=== PATIENT | female | born 1965 | race Caucasian/White ===

== ENCOUNTER → 2018-06-07 | Outpatient (CLI) | payer MEDICARE ==
[~2018-06-07] MED LIST: /ADVA50050 IN; FLEXERIL PO; IBUP600T OR; LYRI150C PO; TYLENOL #3 OR; VICO5TAB PO
--- NOTE | 2018-06-07 14:46 | REP ---
CHEST X-RAY: TWO VIEWS. HISTORY: Chest pain with breathing. COMPARISON CHEST X-RAY: August 11, 2009 FINDINGS: The lungs are quite hyperinflated consistent with COPD. This has increased since the prior study. On today's exam, there is increased density overlying the heart on the lateral film which is a new finding suggesting atelectasis in the right middle lobe. The right heart border is partially obscured. There is no other infiltrate. Heart size is normal. IMPRESSION: Increased density overlying the heart on the lateral film consistent with right middle lobe atelectasis. Overall hyperinflation. Consider chest CT. Electronically Signed by Cecilio Sims MD 06/07/2018 02:53 P
== END ==
LOC: M SMT 11:45
PROVIDERS: ATTEND Internal Medicine Pulmonary Disease
DX: R91.8 Other nonspecific abnormal finding of lung field (principal)

== ENCOUNTER → 2019-07-22 | Outpatient (CLI) | payer MEDICARE ==
[~2019-07-22] MED LIST changes: -/ADVA50050 IN; +ADVA1AER2 IN
--- NOTE | 2019-07-22 11:55 | REP ---
REASON FOR EXAM: Tobacco abuse. The only prior for comparison is a standard contrast enhanced CT of the chest of 03/03/2007. As per the protocol, only lung window images were sent to the read station for interpretation. There is lung field hyperexpansion. There is ground-glass opacity seen throughout the right middle lobe. Small biapical pleural blunt are noted essentially unchanged possibly slightly increased from the prior exam. There is cylindrical bronchiectasis increased from the prior exam. There are no new nodules. Limited evaluation of the pulmonary sixto and mediastinum show no gross abnormalities. Limited evaluation of the imaged upper abdomen and imaged osseus structures show them to be essentially unchanged from the prior exam. IMPRESSION: 1. Emphysematous changes as described above. 2. Slight diffuse ground-glass opacity throughout the right middle lobe. This exam cannot rule out a partially obstructing endobronchial lesion. The findings represents a change from the prior exam and needs to be correlated clinically with appropriate followup. Diagnostic contrast enhanced chest CT is recommended. Lung RADS category 1S. ? Electronically Signed by Donald Price DO 07/22/2019 01:25 P
== END ==
LOC: M RAD 10:33
PROVIDERS: ATTEND Internal Medicine Pulmonary Disease
DX: Z12.2 Encounter for screening for malignant neoplasm of respiratory organs (principal); F17.210 Nicotine dependence, cigarettes, uncomplicated; J43.9 Emphysema, unspecified; R91.8 Other nonspecific abnormal finding of lung field

== ENCOUNTER → 2019-11-08 | Outpatient (CLI) | payer MEDICARE ==
[~2019-11-08] MED LIST changes: +ADVA230A INH; +INCR1INH INH; +VENTAER INH
--- NOTE | 2020-01-09 15:04 | REP ---
INDICATION: R91.8 OTH NON SPEC ABN FINDING LUNG FIELD. Repeat dictation. COMPARISON: Comparison CT study also reviewed from March 03, 2007. TECHNIQUE: Helical scanning is acquired and 3 mm axial images are generated. Coronal MIP and coronal and sagittal MPR images are generated. FINDINGS: Preliminary digital talent scout radiograph demonstrates hyperinflation. Today's CT study demonstrates lobar atelectasis in the right middle lobe. This is observed on comparison chest x-ray from June 07, 2018 but is new from the comparison CT studies. There are air bronchograms in the collapsed right middle lobe centrally. The central portion of the right middle lobe bronchus is obscured or opacified. There is no evidence of hilar or mediastinal mass or adenopathy. No pleural or pericardial effusion is seen. Vascular calcification is noted. Emphysematous changes are visible bilaterally in the upper lobes. There are some emphysematous changes in the lower lobes as well. No mass or nodule is appreciated. Bone window settings show degenerative disc disease changes. There is an osteoporotic wedge compression deformity at the T12 vertebral body level with approximately 40% loss of anterior vertebral body height. Degenerative disc disease is noted at T12-L1. There is partial collapse of the superior and inferior endplates. Schmorl's nodes are noted elsewhere in the thoracolumbar spine segments. IMPRESSION: 1. Lobar atelectasis right middle lobe. 2. Healing osteoporotic wedge compression deformity at T12. 3. Hyperinflation associated with moderate COPD and emphysematous change. <Electronically signed by Boby Sims > 01/09/20 [id number]
== END ==
LOC: M RAD 14:09
PROVIDERS: ATTEND Internal Medicine Pulmonary Disease
DX: R91.8 Other nonspecific abnormal finding of lung field (principal)

== ENCOUNTER → 2019-11-24 | Outpatient (REF) | payer MEDICARE ==
[2019-11-24 18:45] LABS: BASO # 0.1 10^3/uL (0.0-0.2); EOS # 0.1 10^3/uL (0.0-0.5); EOS % 1.2 % (0.0-3.0); HEMATOCRIT 33.3 % (36.0-47.0); HEMOGLOBIN 11.7 g/dl (12.0-15.5); LYMPH # 1.8 10^3/uL (1.5-5.0); LYMPH % 33.9 % (24.0-44.0); MEAN CORPUSCULAR HEMOGLOBIN 35.3 pg (27.0-33.0); MEAN CORPUSCULAR HGB CONC 35.1 g/dl (32.0-36.5); MEAN CORPUSCULAR VOLUME 100.6 fl (80.0-96.0); MONO # 0.7 10^3/uL (0.0-0.8); MONO % 13.9 % (0.0-5.0); NEUTROPHILS # 2.6 10^3/uL (1.5-8.5); NEUTROPHILS % 49.6 % (36.0-66.0); PLATELET COUNT, AUTOMATED 328 10^3/uL (150-450); RED BLOOD COUNT 3.31 10^6/uL (4.00-5.40); WHITE BLOOD COUNT 5.2 10^3/uL (4.0-10.0)
[2019-11-24 18:57] LABS: INR 0.96
[2019-11-24 18:58] LABS: PARTIAL THROMBOPLASTIN TIME 30.7 SECONDS (25.0-38.4)
[2019-11-24 19:14] LABS: ALT/SGPT 21 U/L (12-78); BILIRUBIN,TOTAL 0.2 MG/DL (0.2-1.0); BLOOD UREA NITROGEN 5 MG/DL (7-18); CARBON DIOXIDE LEVEL 29 MEQ/L (21-32); CHLORIDE LEVEL 104 MEQ/L (98-107); CREATININE FOR GFR 0.63 MG/DL (0.55-1.30); GLOMERULAR FILTRATION RATE > 60.0 (>51); GLUCOSE, FASTING 81 MG/DL (70-100); POTASSIUM SERUM 3.9 MEQ/L (3.5-5.1); SODIUM LEVEL 138 MEQ/L (136-145); TOTAL PROTEIN 7.3 GM/DL (6.4-8.2)
== END ==
LOC: M LAB REF 16:47
PROVIDERS: ATTEND Internal Medicine Pulmonary Disease
DX: R91.8 Other nonspecific abnormal finding of lung field (principal)

== ENCOUNTER → 2019-11-30 | Outpatient (CLI) | payer MEDICARE | LOC: M LABSMTC 12:24 | PROVIDERS: ATTEND Anesthesiology | DX: Z01.812 Encounter for preprocedural laboratory examination (principal); Z20.828 Contact with and (suspected) exposure to other viral communicable diseases | CPT/HCPCS: C9803; U0002 ==

== ENCOUNTER 2019-12-05 07:05 | Day surgery (SDC) | payer MEDICARE ==
[~2019-12-05] VITALS: Ht 172.7 cm; Wt 52.2 kg
[~2019-12-05 07:05] MED LIST changes: +ALBUTEROL SULFATE 2.5 MG/0.5 ML INH NEB SOLN NEB ONE; +LIDOCAINE 4% INJ 5ML AMP NEB ONE; +LR 1,000 ML IV ONE
[2019-12-05] MEDS ORDERED: LIDOCAINE 1% SDV 30ML VIAL As Ordered ONE (08:05)
[2019-12-05] MEDS ORDERED: EPINEPHrine 1MG/10ML SYRINGE 1.5IN As Ordered ONE (08:05)
[2019-12-05] MEDS ORDERED: LIDOCAINE 4% INJ 5ML AMP As Ordered ONE (08:06)
[2019-12-05] MEDS ORDERED: THROMBIN SOLN 20,000 UNITS KIT As Ordered ONE (08:06)
[2019-12-05] MEDS ORDERED: ALBUTEROL SULFATE 2.5 MG/0.5 ML INH NEB SOLN As Ordered ONE (08:07)
[2019-12-05] MEDS ORDERED: LIDOCAINE 2% 100MG/5ML SDV (FOR ANES.) As Ordered ONE (08:10)
[2019-12-05] MEDS ORDERED: THROMBIN SOLN 5,000 UNITS VIAL As Ordered ONE (08:10)
[2019-12-05] MEDS ORDERED: CETACAINE SPRAY 5GM As Ordered ONE (08:10)
[2019-12-05] MEDS ORDERED: ROCURONIUM BROMIDE 50 MG/5 ML VIAL As Ordered ONE (08:10)
[2019-12-05] MEDS ORDERED: propofoL 200 MG/20 ML VIAL As Ordered ONE (08:10)
[2019-12-05] MEDS ORDERED: dexameTHASONE 4 MG/ML 1ML VIAL (J1100 PER 1MG) As Ordered ONE (08:11)
[2019-12-05] MEDS ORDERED: ONDANSETRON 4MG/2ML VIAL As Ordered ONE (08:11)
[2019-12-05] MEDS ORDERED: fentaNYL 100 MCG/2 ML INJECTION (J3010) As Ordered ONE (08:11)
[2019-12-05] MEDS ORDERED: MIDAZOLAM INJ 2MG/2ML VIAL (J2250 PER 1MG) As Ordered ONE (08:11)
[2019-12-05] MEDS ORDERED: PHENYLephrine HCL 500 MCG/5 ML (100MCG/ML) SYRINGE (J2370) As Ordered ONE (08:57)
[2019-12-05] MEDS ORDERED: SUGAMMADEX SODIUM 500 MG/5 ML VIAL (BRIDION) As Ordered ONE (09:24)
[2019-12-05] MEDS ORDERED: ACETAMINOPHEN 1000MG 100ML IV BTL (OFIRMEV) (J0131 PER 10MG) As Ordered ONE (09:26)
--- NOTE | 2019-12-05 09:47 | ROOR ---
Patient Name: Maddie Stephen Procedure Date: 12/05/2019 8:13 AM Date of : 1965 Admit Type: Outpatient Age: 54 Room: Main OR Note Status: Finalized Attending MD: Elma Timmons MD Procedure: Bronchoscopy Indications: Atelectasis of the right middle lobe Providers: Elma Timmons MD (Doctor), Duane Klein DO, [facility] (1st Assisting [facility]) Referring MD: 1. No Referring Physician 1. No Referring Physician, Admin. (Referring MD) Requesting Physician: Medicines: General Anesthesia, Lidocaine 4% via nebulizer with Albuterol 2.5 mg, Cetacaine topical, Lidocaine 1% applied to cords 1 mL Complications: No immediate complications. Estimated blood loss: Minimal Procedure: Pre-Anesthesia Assessment: - Prior to the procedure, a History and Physical was performed, and patient medications and allergies were reviewed. The patient's tolerance of previous anesthesia was also reviewed. The risks and benefits of the procedure and the sedation options and risks were discussed with the patient. All questions were answered, and informed consent was obtained. Prior Anticoagulants: The patient has taken no previous anticoagulant or antiplatelet agents. ASA Grade Assessment: II - A patient with mild systemic disease. After reviewing the risks and benefits, the patient was deemed in satisfactory condition to undergo the procedure. - Patient identification and proposed procedure were verified prior to the procedure by the physician, the nurse, the anesthesiologist and the optical engineering technician. The procedure was verified in the procedure room. The Bronchoscope was introduced through the mouth, via the endotracheal tube (the patient was intubated for the procedure) and advanced to the tracheobronchial tree of both lungs. The procedure was accomplished without difficulty. The patient tolerated the procedure well. Findings: The endotracheal tube is in good position. The visualized portion of the trachea is of normal caliber. The maile is sharp. The tracheobronchial tree was examined to at least the first subsegmental level. Bronchial anatomy are normal; bronchial mucosa with pitting and webbing. There are no endobronchial lesions. There was thick mucoid secretions noted in right middle lobe and some in right lower lobe as well as few secretions in left upper lobe. Robotic Electromagnetic navigation bronchoscopy was performed. The CT scan was used for planning purposes. A virtual bronchoscopic image was generated using the planning software. The target in the medial segment of the right middle lobe was marked. An area of infiltration was found and a pathway was created. After a complete airway exam, the [employer] robotic electromagnetic navigation phase was then begun to locate the target lesion(s). Positioning off-center (in relation to the lesion) was confirmed using the Olympus radial probe US catheter. Appeared to be mucous secretions in distal segment off of right middle lobe medial segmental bronchus. Fluoroscopy guided endobronchial brushings of a lesion were obtained in the medial segment of the right middle lobe with a cytology brush and sent for routine cytology. Bronchoalveolar lavage was performed in the RML medial segment (B5) of the lung and sent for cell count, bacterial culture, and fungal & AFB analysis and cytology. The return was blood-tinged and cloudy. Mucous plugs were present in the return fluid. Impression: - Atelectasis of the right middle lobe - The airway examination was normal. - Electromagnetic navigation bronchoscopy was performed. - Transbronchial brushings were obtained. - Bronchoalveolar lavage was performed. Recommendation: - Follow up with bronchoscopist as previously scheduled. Attending Participation: I personally performed the entire procedure. Elma Timmons MD 12/05/2019 9:46:23 AM Duane Klein DO, [facility] Number of Addenda: 0 Note Initiated On: 12/05/2019 8:13 AM
[2019-12-05 09:56] LABS: COLOR PINK (COLORLESS); SOURCE RIGHT MIDDLE LOBE
[2019-12-05 09:57] LABS: APPEARANCE CLOTTED (CLEAR)
[2019-12-05] MEDS ORDERED: ONDANSETRON 4MG/2ML VIAL IV PRN (10:30)
[2019-12-05] MEDS ORDERED: oxyCODONE 5MG TAB PO PRN (10:30)
[2019-12-05] MEDS ORDERED: fentaNYL 100 MCG/2 ML INJECTION (J3010) IV PRN (10:30)
[2019-12-05] MEDS ORDERED: LR 1,000 ML IV SCH (10:30)
[2019-12-05 10:46] VITALS: BP 147/90
--- NOTE | 2019-12-06 06:07 | ECGEPIP ---
[facility] Test Date: 2019-12-05 Pat Name: MERCEDES WILLIAM Department: Room: - Gender: Female Marketing Project Specialist: SEDRICK : 1965 Requested By: DERREK Haas Order Number: [id number] Reading MD: Jey Abreu Measurements Intervals Converse Rate: 83 P: 64 OH: 152 QRS: 71 QRSD: 70 T: 68 QT: 355 QTc: 418 Interpretive Statements Normal sinus rhythm Normal EKG Comparison tracing not on file Electronically Signed on 12-06-2019 6:07:13 EDT by Jey Abreu
--- NOTE | 2019-12-16 08:08 | REP ---
SINGLE VIEW PORTABLE CHEST HISTORY: Bronchoscopy. TECHNIQUE: Single AP view of the chest is performed. FINDINGS: There is no pneumothorax. There is diffuse accentuation of interstitial markings with no focal consolidation. Heart is normal in size and there is calcification of the thoracic aorta. Mediastinal silhouette is unremarkable. MTDD
== END 2019-12-05 10:56 | disposition home or self-care (01) ==
LOC: M SDC 07:05
PROVIDERS: ATTEND Internal Medicine Pulmonary Disease
DX: J98.11 Atelectasis (principal); J44.9 Chronic obstructive pulmonary disease, unspecified; F17.218 Nicotine dependence, cigarettes, with other nicotine-induced disorders; Z79.51 Long term (current) use of inhaled steroids
CPT/HCPCS: 31623; 31624; 31627; 71045; 76000; 87070; 87116; 87205; 87206; 88104; 88108; 88313; 93005; J0131; J1100; J2250; J2370; J2405; J3010; S2900

== ENCOUNTER → 2020-06-20 | Outpatient (CLI) | payer MEDICARE ==
[~2020-06-20] MED LIST changes: -ALBUTEROL SULFATE 2.5 MG/0.5 ML INH NEB SOLN NEB ONE; -LIDOCAINE 4% INJ 5ML AMP NEB ONE; -LR 1,000 ML IV ONE
--- NOTE | 2020-06-20 15:52 | REP ---
INDICATION: ABN FINDINGS OF LUNG FIELD. COMPARISON: Chest CT dated 11/08/2019. TECHNIQUE: Chest CT without IV contrast. FINDINGS: There is right middle lobe collapse similar to the prior study. The remainder of the lung tripp are clear but there are small bulla scattered throughout the lung tripp bilaterally. There is no mediastinal lymph node enlargement. There is no axillary lymphadenopathy. The absence of IV contrast the study is insensitive for hilar lymph node enlargement. The unenhanced thoracic aorta is unremarkable. Cardiac size normal. There is no pericardial effusion. The visualized upper abdominal contents are unremarkable. Vertebral compression deformities are again identified, unchanged. There are no retropulsed fragments. IMPRESSION: There is no significant interval change. There is persistent collapse of the right middle lobe, unchanged. There are compression deformities of several vertebral bodies without retropulsed fragments, unchanged. Numerous small bulla are again identified scattered throughout the lung tripp bilaterally. <Electronically signed by Gary Jernigan > 06/20/20 [id number]
== END ==
LOC: M RAD 15:22
PROVIDERS: ATTEND Internal Medicine Pulmonary Disease
DX: R91.8 Other nonspecific abnormal finding of lung field (principal)

== ENCOUNTER → 2021-04-12 | Outpatient (CLI) | payer MEDICAID, MEDICARE | LOC: M RAD 09:57 | PROVIDERS: ATTEND Internal Medicine Pulmonary Disease | DX: R91.8 Other nonspecific abnormal finding of lung field (principal); M51.34 Other intervertebral disc degeneration, thoracic region; M51.35 Other intervertebral disc degeneration, thoracolumbar region ==

== ENCOUNTER 2024-03-20 12:01 | Emergency (ER) | payer MEDICARE, MEDICAID ==
[~2024-03-20] VITALS: Ht 172.7 cm; Wt 41.0 kg
[2024-03-20] MEDS ORDERED: ISOVUE-370 76% 100ML VIAL As Ordered ONE (12:27)
[2024-03-20 12:45] LABS: BASO % 0.3 % (0.0-1.0); EOS % 0.1 % (0.0-3.0); HEMATOCRIT 41.9 % (36.0-47.0); HEMOGLOBIN 15.2 g/dl (12.0-15.5); LYMPH # 1.6 10^3/uL (1.5-5.0); LYMPH % 11.1 % (24.0-44.0); MEAN CORPUSCULAR HEMOGLOBIN 34.1 pg (27.0-33.0); MEAN CORPUSCULAR HGB CONC 36.3 g/dl (32.0-36.5); MEAN CORPUSCULAR VOLUME 93.9 fl (80.0-96.0); MONO # 1.2 10^3/uL (0.0-0.8); MONO % 8.5 % (2.0-8.0); NEUTROPHILS % 78.1 % (36.0-66.0); PLATELET COUNT, AUTOMATED 271 10^3/uL (150-450); RED BLOOD COUNT 4.46 10^6/uL (4.00-5.40); WHITE BLOOD COUNT 14.1 10^3/uL (4.0-10.0)
[2024-03-20 12:57] LABS: INR 1.01; PROTHROMBIN TIME 13.6 SECONDS (12.5-14.5)
[2024-03-20] MEDS: MORPHINE 4 MG/ML 1ML VIAL IV PRN (13:00)
[2024-03-20 13:11] LABS: ETHYL ALCOHOL (ETHANOL) 0.003 % (0.000-0.010)
[2024-03-20 13:17] LABS: ALKALINE PHOSPHATASE 165 U/L (35-104); ALT/SGPT 35 U/L (7.0-40); AST/SGOT 63 U/L (<34); BILIRUBIN,DIRECT 0.6 MG/DL (<0.4); BILIRUBIN,TOTAL 1.5 MG/DL (0.3-1.2); BLOOD UREA NITROGEN 15 MG/DL (9-23); CALCIUM LEVEL 9.1 MG/DL (8.3-10.6); CARBON DIOXIDE LEVEL 16 MMOL/L (20-31); CHLORIDE LEVEL 78 MMOL/L (98-107); CK-MB VALUE MASS 13.6 NG/ML (<3.6); CPK CREATINE PHOSPHOKINASE 470 U/L (34-145); CREATININE FOR GFR 0.45 MG/DL (0.55-1.30); GLOMERULAR FILTRATION RATE > 60.0 (>45); GLUCOSE, FASTING 90 MG/DL (74-106); MB/CK RELATIVE INDEX 2.89 (< OR =4); POTASSIUM SERUM 4.3 MMOL/L (3.5-5.1); SODIUM LEVEL 118 MMOL/L (136-145); TOTAL PROTEIN 6.7 G/DL (5.7-8.2)
[2024-03-20] MEDS: NS 500 ML IV ONE (13:52)
[2024-03-20] MEDS: MORPHINE 4 MG/ML 1ML VIAL IV ONE (14:15)
[2024-03-20] MEDS: D10W/0.45% SODIUM CHLORIDE 1,000 ML IV SCH (14:15)
[2024-03-20 14:50] VITALS: O2SAT 97
[2024-03-20 14:53] VITALS: BP 151/72; TEMP 99.1
== END 2024-03-20 15:05 | disposition short-term general hospital (02) ==
LOC: M ED 12:01
DX: I21.3 ST elevation (STEMI) myocardial infarction of unspecified site (principal); S32.10XA Unspecified fracture of sacrum, initial encounter for closed fracture; E87.1 Hypo-osmolality and hyponatremia; E87.21 Acute metabolic acidosis; I26.99 Other pulmonary embolism without acute cor pulmonale; R00.0 Tachycardia, unspecified; J44.9 Chronic obstructive pulmonary disease, unspecified; M54.50 Low back pain, unspecified; M79.7 Fibromyalgia; Z79.52 Long term (current) use of systemic steroids; Z79.899 Other long term (current) drug therapy
CPT/HCPCS: 70450; 71260; 72125; 72128; 72131; 73552; 73590; 74177; 80047; 80048; 80076; 82077; 82550; 82553; 84484; 85025; 85610; 85730; 86850; 86900; 86901; 87635; 93005; 93041; 94760; 96365; 96374; 96376; 99285; Q9967

== ENCOUNTER 2024-04-29 09:54 | Emergency (ER) | payer MEDICAID, MEDICARE ==
[~2024-04-29] VITALS: Ht 172.7 cm; Wt 45.2 kg
[2024-04-29 12:18] LABS: BASO # 0.1 10^3/uL (0.0-0.2); BASO % 0.5 % (0.0-1.0); EOS # 0.1 10^3/uL (0.0-0.5); EOS % 0.5 % (0.0-3.0); HEMATOCRIT 36.7 % (36.0-47.0); HEMOGLOBIN 12.3 g/dl (12.0-15.5); LYMPH # 2.1 10^3/uL (1.5-5.0); LYMPH % 18.8 % (24.0-44.0); MEAN CORPUSCULAR HEMOGLOBIN 32.3 pg (27.0-33.0); MEAN CORPUSCULAR HGB CONC 33.5 g/dl (32.0-36.5); MEAN CORPUSCULAR VOLUME 96.3 fl (80.0-96.0); MONO # 0.7 10^3/uL (0.0-0.8); MONO % 6.5 % (2.0-8.0); NEUTROPHILS # 8.1 10^3/uL (1.5-8.5); NEUTROPHILS % 73.3 % (36.0-66.0); PLATELET COUNT, AUTOMATED 281 10^3/uL (150-450); RED BLOOD COUNT 3.81 10^6/uL (4.00-5.40); WHITE BLOOD COUNT 11.1 10^3/uL (4.0-10.0)
[2024-04-29 12:24] LABS: ERYTHROCYTE SEDIMENTATION RATE 11 mm/hr (0-30)
[2024-04-29 12:30] VITALS: BP 153/85
[2024-04-29 12:31] LABS: INR 0.9; PARTIAL THROMBOPLASTIN TIME 29.7 SECONDS (24.8-34.2); PROTHROMBIN TIME 12.5 SECONDS (12.5-14.5)
[2024-04-29 12:39] LABS: C REACTIVE PROTEIN QUANTITATIV < 0.50 MG/DL (<1.0)
[2024-04-29 12:40] LABS: ALBUMIN 3.7 G/DL (3.2-5.2); ALKALINE PHOSPHATASE 108 U/L (35-104); ALT/SGPT 10 U/L (7.0-40); AST/SGOT 15 U/L (<34); BILIRUBIN,DIRECT 0.2 MG/DL (<0.4); BILIRUBIN,TOTAL 0.5 MG/DL (0.3-1.2); BLOOD UREA NITROGEN 10 MG/DL (9-23); CALCIUM LEVEL 9.5 MG/DL (8.3-10.6); CARBON DIOXIDE LEVEL 30 MMOL/L (20-31); CHLORIDE LEVEL 104 MMOL/L (98-107); CREATININE FOR GFR 0.42 MG/DL (0.55-1.30); GLOMERULAR FILTRATION RATE > 60.0 (>45); GLUCOSE, FASTING 109 MG/DL (74-106); POTASSIUM SERUM 4.1 MMOL/L (3.5-5.1); SODIUM LEVEL 140 MMOL/L (136-145); TOTAL PROTEIN 7.2 G/DL (5.7-8.2)
[2024-04-29] MEDS ORDERED: METO1TAB87 PO (12:43)
[2024-04-29] MEDS ORDERED: JARD1TAB PO (12:43)
[2024-04-29] MEDS ORDERED: MAGN200T10 PO (12:43)
[2024-04-29] MEDS ORDERED: ATOR40TA75 PO (12:43)
[2024-04-29] MEDS ORDERED: BUDE10.32 INH (12:43)
[2024-04-29] MEDS ORDERED: FOLI20CA PO (12:43)
[2024-04-29] MEDS ORDERED: CLOP75TA2 PO (12:43)
[2024-04-29] MEDS ORDERED: GABA-1171 PO (12:43)
[2024-04-29] MEDS ORDERED: VALS40TA9 PO (12:43)
[2024-04-29] MEDS ORDERED: ECOT81TA5 PO (12:43)
[2024-04-29] MEDS ORDERED: FURO20TA2 PO (12:43)
[2024-04-29 12:46] LABS: PROCALCITONIN 0.04 ng/ml
[2024-04-29 13:00] VITALS: TEMP 97.6; O2SAT 93
[2024-04-29] MEDS ORDERED: CEPH25SS PO (13:00)
[2024-04-29] MEDS ORDERED: OXYC-600 PO (13:00)
[2024-04-29] MEDS: PERCOCET 5MG/325MG TAB PO ONE (13:29)
== END 2024-04-29 13:38 | disposition home or self-care (01) ==
LOC: M ED 09:54
DX: I73.9 Peripheral vascular disease, unspecified (principal); J44.9 Chronic obstructive pulmonary disease, unspecified; F17.200 Nicotine dependence, unspecified, uncomplicated; Z79.899 Other long term (current) drug therapy

== ENCOUNTER → 2024-06-14 | Outpatient (CLI) | payer MEDICARE, MEDICAID ==
[~2024-06-14] VITALS: Ht 172.7 cm; Wt 45.8 kg
[~2024-06-14] MED LIST changes: +ATOR40TA75 PO; +BUDE10.32 INH; +CEPH25SS PO; +CLOP75TA2 PO; +DULO30CA9 PO; +ECOT81TA5 PO; +FOLI20CA PO; +FURO20TA2 PO; +GABA-1171 PO; +JARD1TAB PO; +MAGN200T10 PO; +METO1TAB87 PO; +MORP20SO PO; +OXYC-600 PO; +VALS40TA9 PO
[2024-06-14 14:17] VITALS: BP 132/69; O2SAT 92
== END ==
LOC: M PAL 13:52
PROVIDERS: ATTEND Physician Assistant
DX: Z51.5 Encounter for palliative care (principal); Z66 Do not resuscitate; R54 Age-related physical debility; J44.0 Chronic obstructive pulmonary disease with (acute) lower respiratory infection; I70.25 Atherosclerosis of native arteries of other extremities with ulceration; I74.09 Other arterial embolism and thrombosis of abdominal aorta; R64 Cachexia; R91.8 Other nonspecific abnormal finding of lung field; Z79.891 Long term (current) use of opiate analgesic; Z99.81 Dependence on supplemental oxygen; F17.210 Nicotine dependence, cigarettes, uncomplicated; K59.00 Constipation, unspecified

== ENCOUNTER → 2024-06-28 | Outpatient (CLI) | payer MEDICARE, MEDICAID ==
[~2024-06-28] VITALS: Ht 172.7 cm; Wt 43.5 kg
[~2024-06-28] MED LIST changes: +DULO1CAP6 PO; +OXYC-517 PO
[2024-06-28 13:46] VITALS: BP 90/56; O2SAT 93
== END ==
LOC: M PAL 13:23
PROVIDERS: ATTEND Physician Assistant
DX: Z51.5 Encounter for palliative care (principal); Z66 Do not resuscitate; J44.9 Chronic obstructive pulmonary disease, unspecified; I73.9 Peripheral vascular disease, unspecified; R64 Cachexia; R91.8 Other nonspecific abnormal finding of lung field; Z79.891 Long term (current) use of opiate analgesic; Z79.82 Long term (current) use of aspirin; Z79.02 Long term (current) use of antithrombotics/antiplatelets; Z79.899 Other long term (current) drug therapy

== ENCOUNTER → 2024-07-12 | Outpatient (CLI) | payer MEDICARE, MEDICAID ==
[~2024-07-12] MED LIST changes: +OXYC10TA12 PO
== END ==
LOC: M PAL 12:55
PROVIDERS: ATTEND Physician Assistant
DX: Z51.5 Encounter for palliative care (principal); Z66 Do not resuscitate; Z79.891 Long term (current) use of opiate analgesic; R54 Age-related physical debility; J44.9 Chronic obstructive pulmonary disease, unspecified; I70.209 Unspecified atherosclerosis of native arteries of extremities, unspecified extremity; R64 Cachexia; R91.8 Other nonspecific abnormal finding of lung field; Z79.82 Long term (current) use of aspirin; Z79.899 Other long term (current) drug therapy

== ENCOUNTER → 2024-07-26 | Outpatient (CLI) | payer MEDICARE, MEDICAID ==
[~2024-07-26] MED LIST changes: +GABA-1172 PO
== END ==
LOC: M PLARAD 11:07
PROVIDERS: ATTEND Internal Medicine Critical Care Medicine
DX: R91.8 Other nonspecific abnormal finding of lung field (principal)
CPT/HCPCS: 78815; A9552

== ENCOUNTER → 2024-07-26 | Outpatient (CLI) | payer MEDICARE, MEDICAID | LOC: M PAL 14:14 | PROVIDERS: ATTEND Physician Assistant | DX: Z51.5 Encounter for palliative care (principal); Z66 Do not resuscitate; R54 Age-related physical debility; J44.9 Chronic obstructive pulmonary disease, unspecified; I74.09 Other arterial embolism and thrombosis of abdominal aorta; I70.0 Atherosclerosis of aorta; R64 Cachexia; R91.8 Other nonspecific abnormal finding of lung field; Z79.891 Long term (current) use of opiate analgesic; Z79.82 Long term (current) use of aspirin; Z79.899 Other long term (current) drug therapy ==

== ENCOUNTER → 2024-09-22 | Outpatient (CLI) | payer MEDICARE, MEDICAID ==
[~2024-09-22] MED LIST changes: +BUDE10.2; +CARV12.5; +ENTR1TAB7 PO; +OXYC-1 PO; +OXYC15TA66 PO; +SPIR-10
== END ==
LOC: M PAL 14:26
PROVIDERS: ATTEND Physician Assistant
DX: Z51.5 Encounter for palliative care (principal); Z66 Do not resuscitate; R54 Age-related physical debility; J44.9 Chronic obstructive pulmonary disease, unspecified; I70.208 Unspecified atherosclerosis of native arteries of extremities, other extremity; R64 Cachexia; R91.8 Other nonspecific abnormal finding of lung field; Z79.891 Long term (current) use of opiate analgesic; Z79.82 Long term (current) use of aspirin; Z79.899 Other long term (current) drug therapy

== ENCOUNTER → 2024-10-06 | Outpatient (CLI) | payer MEDICARE, MEDICAID | LOC: M PAL 12:58 | PROVIDERS: ATTEND Physician Assistant | DX: Z51.5 Encounter for palliative care (principal); Z66 Do not resuscitate; R54 Age-related physical debility; J44.9 Chronic obstructive pulmonary disease, unspecified; I70.269 Atherosclerosis of native arteries of extremities with gangrene, unspecified extremity; R64 Cachexia; R22.31 Localized swelling, mass and lump, right upper limb; Z79.891 Long term (current) use of opiate analgesic; Z79.899 Other long term (current) drug therapy; Z79.82 Long term (current) use of aspirin; Z79.02 Long term (current) use of antithrombotics/antiplatelets ==

== ENCOUNTER 2024-10-19 03:51 | Inpatient (IN) | payer MEDICAID, MEDICARE, OTHER ==
[~2024-10-19] VITALS: Ht 172.7 cm; Wt 43.5 kg
[~2024-10-19 03:51] MED LIST changes: -CARV12.5; +CARV12.5 PO; -SPIR-10; +SPIR-10 PO
[2024-10-19] MEDS: NS 500 ML IV ONE (04:43)
[2024-10-19 04:52] LABS: VENOUS BASE EXCESS 2.9 (-2.0-2.0); VENOUS HCO3 30.0 MMOL/L (23.0-27.0); VENOUS O2 SATURATION 66.1 % (60.0-80.0); VENOUS PARTIAL PRESSURE CO2 59.1 mmHg (38.0-50.0); VENOUS PARTIAL PRESSURE O2 36.0 mmHg (30.0-50.0); VENOUS PH 7.324 UNITS (7.330-7.430); VENOUS STANDARD HCO3 26.5 MMOL/L; VENOUS TOTAL CO2 31.9 MMOL/L (24.0-28.0)
[2024-10-19 05:00] LABS: BASO # 0.1 10^3/uL (0.0-0.2); BASO % 0.4 % (0.0-1.0); EOS # 0.0 10^3/uL (0.0-0.5); EOS % 0.1 % (0.0-3.0); LYMPH # 1.7 10^3/uL (1.5-5.0); LYMPH % 12.1 % (24.0-44.0); MONO # 1.0 10^3/uL (0.0-0.8); MONO % 7.4 % (2.0-8.0); NEUTROPHILS # 11.2 10^3/uL (1.5-8.5); NEUTROPHILS % 79.7 % (36.0-66.0); PLATELET COUNT, AUTOMATED 376 10^3/uL (150-450)
[2024-10-19] MEDS: ONDANSETRON 4MG 2ML VIAL IV ONE (05:03)
[2024-10-19] MEDS: HYDROMORPHONE HCL 0.5 MG/0.5 ML SYRINGE IV PRN (05:04)
[2024-10-19 05:25] LABS: ETHYL ALCOHOL (ETHANOL) < 0.003 % (0.000-0.010)
[2024-10-19 05:27] LABS: ALT/SGPT 32 U/L (7.0-40); AST/SGOT 140 U/L (<34); CALCIUM LEVEL 9.5 MG/DL (8.3-10.6); CARBON DIOXIDE LEVEL 32 MMOL/L (20-31); CHLORIDE LEVEL 93 MMOL/L (98-107); CK-MB VALUE MASS 39.2 NG/ML (<3.6); CREATININE FOR GFR 0.68 MG/DL (0.55-1.30); GLOMERULAR FILTRATION RATE > 90.0 (>45); POTASSIUM SERUM 6.0 MMOL/L (3.5-5.1); SALICYLATE LEVEL < 3.0 MG/DL (<30); SODIUM LEVEL 132 MMOL/L (136-145)
[2024-10-19 06:13] LABS: CPK CREATINE PHOSPHOKINASE 1848 U/L (34-145); MB/CK RELATIVE INDEX 2.12 (< OR =4)
[2024-10-19] MEDS: NS (Normal Saline) 0.9% 1,000 ML IV ONE (06:42)
[2024-10-19] MEDS: DEXTROSE 50% 50 ML SYRINGE IV ONE (06:42)
[2024-10-19] MEDS: HumuLIN R (REGULAR) INSULIN (NovoLIN R) **100 U/ML** PER UNIT IV ONE (06:50)
[2024-10-19] MEDS: PATIROMER SORBITEX CALCIUM 8.4GM POWDER PACKET PO ONE (06:53)
[2024-10-19] MEDS: ALBUTEROL SULFATE 2.5 MG/0.5 ML INH CONCENTRATE NEB SOLN INH ONE (07:12)
[2024-10-19 08:14] LABS: CK-MB VALUE MASS 33.5 NG/ML (<3.6)
[2024-10-19 08:28] LABS: CPK CREATINE PHOSPHOKINASE 1594.0 U/L (34-145); MB/CK RELATIVE INDEX 2.1 (< OR =4)
[2024-10-19] MEDS ORDERED: OXYC-1 PO (08:28)
[2024-10-19] MEDS ORDERED: BACTDSTA PO (08:28)
[2024-10-19] MEDS ORDERED: ENTR1TAB PO (08:28)
[2024-10-19] MEDS ORDERED: IPRA0.00 NEB (08:28)
[2024-10-19] MEDS ORDERED: GABA-1172 PO (08:28)
[2024-10-19] MEDS ORDERED: DULO1CAP6 PO (08:28)
[2024-10-19] MEDS ORDERED: OXYC15TA66 PO (08:28)
[2024-10-19] MEDS ORDERED: HOME MED LIST COMPLETE! XX SCH (08:30)
[2024-10-19] MEDS ORDERED: ALBUTEROL 90 MCG/ACT 8 GM HFA INHALER INH PRN (09:40)
[2024-10-19] MEDS ORDERED: FOLI1TAB11 PO (09:53)
[2024-10-19 10:29] LABS: ALT/SGPT 29 U/L (7.0-40); AST/SGOT 125 U/L (<34); CALCIUM LEVEL 9.2 MG/DL (8.3-10.6); CARBON DIOXIDE LEVEL 30 MMOL/L (20-31); CHLORIDE LEVEL 97 MMOL/L (98-107); CREATININE FOR GFR 0.53 MG/DL (0.55-1.30); GLOMERULAR FILTRATION RATE > 90.0 (>45); POTASSIUM SERUM 4.6 MMOL/L (3.5-5.1); SODIUM LEVEL 135 MMOL/L (136-145)
[2024-10-19] MEDS: ASPIRIN 81 MG ENTERIC TABLET PO SCH (10:30)
[2024-10-19] MEDS: ENOXAPARIN 40 MG/0.4 ML SYRINGE (J1650 PER 10MG) SC SCH (10:30)
[2024-10-19] MEDS: GABAPENTIN 100 MG CAP PO SCH (10:31)
[2024-10-19] MEDS: CLOPIDOGREL 75 MG TAB PO SCH (10:32)
[2024-10-19] MEDS: GABAPENTIN 300 MG CAP PO SCH (10:32)
[2024-10-19 10:41] LABS: INR 0.9
[2024-10-19 11:03] VITALS: BP 128/57; TEMP 97.5; O2SAT 97
[2024-10-19] MEDS: NS (Normal Saline) 0.9% 1,000 ML IV SCH (11:37)
[2024-10-19] MEDS: cefTRIAXone SOD 1 GM in DEXTROSE 5% (D5W) ADV/MINI-BAG 50 ML IV SCH (11:42)
[2024-10-19] MEDS: NICOTINE 21 MG/24 HR 1 EA TRANSDERMAL TD SCH (11:43)
[2024-10-19 11:44] LABS: KETONE, URINE AUTO RFX TRACE mg/dL (NEGATIVE); NITRITE, URINE AUTO RFX NEGATIVE (NEGATIVE); RBC, URINE AUTO RFX 10 /HPF (0-3); SQUAM EPITHELIAL CELL UR AURFX 25 /HPF (0-6); WBC, URINE AUTO RFX 9 /HPF (0-3)
[2024-10-19 12:03] LABS: LEUKOCYTE ESTERASE UR AUTO RFX TRACE (NEGATIVE)
[2024-10-19] MEDS ORDERED: ONDANSETRON 4MG ORAL DISINTEGRATING TAB PO PRN (12:20)
[2024-10-19] MEDS ORDERED: BISACODYL 10 MG SUPP PR PRN (12:20)
[2024-10-19] MEDS ORDERED: HYOSCYAMINE SULFATE 0.125 MG SUBL TABLET PO PRN (12:20)
[2024-10-19] MEDS ORDERED: MORPHINE 10 MG/0.5 ML ORAL CONCENTRATE SOLUTION U/D SL PRN (12:20)
[2024-10-19] MEDS ORDERED: ATROPINE SULFATE 1% OPHTH SOLN 2 ML BTL SL PRN (12:20)
[2024-10-19] MEDS: oxyCODONE 15MG CR TAB PO SCH (16:02)
[2024-10-19] MEDS ORDERED: PILL CUTTER 1 EACH XX ONE (20:33)
[2024-10-19 20:40] VITALS: BP 134/57
[2024-10-19] MEDS: CEPHALEXIN 500 MG CAP PO SCH (20:40)
[2024-10-19] MEDS: LORazepam 1 MG TAB PO PRN (20:41)
[2024-10-19] MEDS: ACETAMINOPHEN 325 MG TAB PO PRN (20:42)
[2024-10-19] MEDS: SYMBICORT 160/4.5MCG INHALER 6GM INH SCH (20:48)
[2024-10-19] MEDS ORDERED: ATORVASTATIN 20 MG TAB PO SCH (21:00)
[2024-10-20] MEDS: LORazepam 0.5 MG TAB PO PRN (11:56)
[2024-10-20] MEDS ORDERED: SALIVA SUBSTITUTE BTL MT PRN (13:00)
[2024-10-20] MEDS ORDERED: POLYVINYL ALCOHOL OPHTH SOLN 15ML (LIQUITEARS) OU PRN (13:00)
[2024-10-20] MEDS: LORazepam 1 MG TAB PO SCH (13:24)
[2024-10-20] MEDS: oxyCODONE 15MG CR TAB PO SCH (16:01)
[2024-10-20] MEDS: LORazepam 1 MG TAB PO PRN (16:01)
[2024-10-22] MEDS: oxyCODONE 20MG CR TAB PO SCH (20:21)
[2024-10-22] MEDS: oxyCODONE 10 MG CR TAB PO SCH (20:21)
[2024-10-24] MEDS: LORazepam 1 MG TAB PO SCH (12:23)
[2024-10-24] MEDS: oxyCODONE 20MG CR TAB PO SCH (16:31)
[2024-10-24] MEDS: LORazepam 1 MG TAB PO PRN (18:08)
[2024-10-26 20:39] VITALS: BP 107/76; TEMP 97.7; O2SAT 97
[2024-10-28] MEDS: LORazepam 1 MG TAB PO SCH (11:55)
[2024-10-28] MEDS: oxyCODONE 20MG CR TAB PO SCH (16:10)
[2024-10-31] MEDS: MORPHINE 10 MG/0.5 ML ORAL CONCENTRATE SOLUTION U/D SL PRN (23:40)
[2024-11-01] MEDS ORDERED: ATIV1TAB10 PO (08:05)
[2024-11-01] MEDS ORDERED: MORP1SOL5 PO (08:05)
[2024-11-01] MEDS ORDERED: HYOS125TA PO (08:05)
[2024-11-01] MEDS ORDERED: FENT100D25 TOP (08:05)
[2024-11-03] MEDS ORDERED: FENTANYL REMOVAL DOCUMENTATION MISC XX SCH (21:00)
== END 2024-11-01 09:40 | disposition hospice, inpatient (51) | DRG 640 ==
LOC: M ED 03:51 → M ED INP 09:16 → M MSPAV 10:59
PROVIDERS: ADMIT Internal Medicine; ATTEND Internal Medicine
DX: R62.7 Adult failure to thrive (principal); E43 Unspecified severe protein-calorie malnutrition; G93.41 Metabolic encephalopathy; R57.1 Hypovolemic shock; J96.11 Chronic respiratory failure with hypoxia; Z68.1 Body mass index [BMI] 19.9 or less, adult; R65.10 Systemic inflammatory response syndrome (SIRS) of non-infectious origin without acute organ dysfunction; I50.22 Chronic systolic (congestive) heart failure; E87.1 Hypo-osmolality and hyponatremia; N39.0 Urinary tract infection, site not specified; I74.09 Other arterial embolism and thrombosis of abdominal aorta; L98.418 Non-pressure chronic ulcer of buttock with other specified severity; E87.5 Hyperkalemia; I73.9 Peripheral vascular disease, unspecified; J44.9 Chronic obstructive pulmonary disease, unspecified; Z51.5 Encounter for palliative care; F17.200 Nicotine dependence, unspecified, uncomplicated; I25.10 Atherosclerotic heart disease of native coronary artery without angina pectoris; F10.10 Alcohol abuse, uncomplicated; Z79.899 Other long term (current) drug therapy; Z66 Do not resuscitate